=== PATIENT | male | born 1995 | race Caucasian/White ===

== ENCOUNTER 2017-09-13 09:07 | Day surgery (SDC) | payer OTHER ==
[2017-09-13] MEDS ORDERED: LIDOCAINE 2% INJ 100 MG/5 ML SDV (FOR ANES.) As Ordered ×2 (10:30→11:00)
[2017-09-13] MEDS ORDERED: ROCURONIUM BROMIDE 50 MG/5 ML VIAL As Ordered ×2 (10:30→11:01)
[2017-09-13] MEDS ORDERED: MIDAZOLAM INJ 2 MG/2 ML VIAL (J2250) As Ordered (10:30)
[2017-09-13] MEDS ORDERED: fentaNYL 100 MCG/2 ML INJECTION (J3010) As Ordered ×2 (10:30→11:09)
[2017-09-13] MEDS: LR 1,000 ML IV (10:40)
[2017-09-13] MEDS ORDERED: PROPOFOL 200 MG/20 ML VIAL As Ordered (11:00)
[2017-09-13] MEDS: LIDOCAINE W/EPINEPHRINE 1% 20ML VIAL As Ordered (11:05)
[2017-09-13] MEDS: METHYLENE BLUE 0.5% (5MG/ML) 10 ML AMP (PROVAYBLUE)(Q9968 PER 1MG) As Ordered (11:12)
[2017-09-13] MEDS: EPINEPHrine 1MG/ML INJ 30ML MD-VIAL As Ordered (11:12)
[2017-09-13] MEDS ORDERED: LR 1,000 ML IV ×2 (11:45)
[2017-09-13] MEDS ORDERED: MEPERIDINE INJ 25 MG/ML VIAL (J2175) IV (11:45)
[2017-09-13] MEDS ORDERED: METOCLOPRAMIDE INJ 10MG/2ML VIAL (J2765) IV (11:45)
[2017-09-13] MEDS: PERCOCET 5MG/325MG TAB PO ×5 (11:55→12:30)
[2017-09-13] MEDS: fentaNYL 100 MCG/2 ML INJECTION (J3010) IV ×4 (11:55→12:13)
[2017-09-13] MEDS: ONDANSETRON 4MG/2ML VIAL (J2405) IV ×2 (11:55→12:10)
== END 2017-09-13 13:18 | disposition home or self-care (01) ==
LOC: M SDC 09:07
DX: J34.2 Deviated nasal septum (principal)
CPT/HCPCS: 30520

== ENCOUNTER 2019-01-09 14:27 | Emergency (ER) | payer OTHER ==
[~2019-01-09] VITALS: Ht 175.3 cm; Wt 75.0 kg
[2019-01-09 14:27] VITALS: BP 135/66
--- NOTE | 2019-01-09 16:15 | ED PDOC ---
Post-Departure Follow-Up signed on to see patient however patient LWBS Amy Wiggins MD Jan 09, 2019 16:15
== END 2019-01-09 15:45 | disposition left against medical advice (07) ==
LOC: M ED 14:27
DX: Z53.21 Procedure and treatment not carried out due to patient leaving prior to being seen by health care provider (principal)

== ENCOUNTER → 2019-01-21 | Outpatient (CLI) | payer OTHER ==
--- NOTE | 2019-01-22 05:15 | REP ---
Clinical: Left knee pain Technique: AP, lateral, bilateral oblique and sunrise views left knee . Findings: The osseous structures and joint spaces are intact and normal. There is no evidence for acute fracture or dislocation. No joint effusion is appreciated. Surrounding soft tissues are unremarkable. No subcutaneous emphysema or radiodense foreign body. Impression: Normal age-appropriate left knee examination. No acute fracture or dislocation. Electronically Signed by Avni Nguyen MD 01/22/2019 05:07 A
== END ==
LOC: M RAD 12:37
PROVIDERS: ATTEND Physician Assistant Medical
DX: M25.562 Pain in left knee (principal)